=== PATIENT | female | born 1995 | race Caucasian/White ===

== ENCOUNTER 2019-11-23 19:29 | Emergency (ER) | payer MEDICAID, OTHER ==
[~2019-11-23] VITALS: Ht 165.1 cm; Wt 95.3 kg
[2019-11-23 19:29] VITALS: BP_SYST 130
[2019-11-23 22:39] VITALS: BP_SYST 128
== END 2019-11-23 22:40 | disposition home or self-care (01) ==
LOC: SED 19:29
DX: J98.8 Other specified respiratory disorders (principal); R05 Cough; R07.89 Other chest pain
CPT/HCPCS: 36415; 71046-TC; 81025; 86403; 87081; 93005; 99284; 99285